=== PATIENT | male | born 2000 | race Caucasian/White ===

== ENCOUNTER 2019-01-30 14:20 | Outpatient (CLI) | payer BC | END 2019-01-30 23:59 | disposition home or self-care (01) | LOC: RAD 14:20 | PROVIDERS: ATTEND Family Medicine | DX: R10.9 Unspecified abdominal pain (principal) | CPT/HCPCS: 74177; Q9967 ==

== ENCOUNTER 2019-02-07 12:41 | Emergency (ER) | payer BC ==
[~2019-02-07] VITALS: Ht 188 cm; Wt 82.5 kg
[2019-02-07 15:53] VITALS: BP 113/71
== END 2019-02-07 16:30 | disposition home or self-care (01) ==
LOC: ED 16:24
DX: K26.3 Acute duodenal ulcer without hemorrhage or perforation (principal); R19.7 Diarrhea, unspecified; R11.0 Nausea
CPT/HCPCS: 36415; 80053; 81003; 83690; 85025; 99283

== ENCOUNTER 2019-04-23 12:06 | Emergency (ER) | payer BC ==
[~2019-04-23] VITALS: Ht 188 cm; Wt 84.0 kg
--- NOTE | 2019-04-23 12:28 | NUR ---
RN AND LIN OBTAINED BREATHALYZER, 0.193.
--- NOTE | 2019-04-23 12:33 | NUR ---
PT ASLEEP ON GURNEY. RR EVEN AND UNLABORED.
--- NOTE | 2019-04-23 12:54 | NUR ---
REPORT TO JARRED JOHNSON LUNCH RELIEF.
--- NOTE | 2019-04-23 13:54 | NUR ---
PT AMBULATED TO RESTROOM WITH RN WITH A STEADY GAIT. PT STATED HE IS READY TO GO HOME. RN TO INFORM VERONIKA.
--- NOTE | 2019-04-23 13:58 | NUR ---
RN INFORMED ERMD THAT PT AMBULATED TO RESTROOM AND IS READY TO LEAVE. ERMD TO DC PATIENT.
--- NOTE | 2019-04-23 14:17 | NUR ---
PT BEING DISCHARGED HOME IN A STABLE CONDITION. DC INSTRUCTIONS WERE DISCUSSED WITH PT. PT VERBALIZED UNDERSTANDING. PT AMBULATED WITH RN TO DC DESK. TAXI VOUCHER WAS PROVIDED TO PT. RN CALLED [employer]. [employer] TO ROUGE MIXER PT INFRONT OF ED.
[2019-04-23 14:18] VITALS: BP 105/57
== END 2019-04-23 14:20 | disposition home or self-care (01) ==
LOC: ED 12:23
DX: F10.120 Alcohol abuse with intoxication, uncomplicated (principal); F17.200 Nicotine dependence, unspecified, uncomplicated
CPT/HCPCS: 99283